=== PATIENT | male | born 1985 | race Caucasian/White ===

== ENCOUNTER 2020-05-09 09:07 | Emergency (ER) | payer OTHER ==
[~2020-05-09] VITALS: Ht 167.6 cm; Wt 77.3 kg
[2020-05-09 09:15] VITALS: Ht 167.6 cm; Wt 77.3 kg
[2020-05-09] MEDS ORDERED: PREDNISONE50 MG PO (09:23)
[2020-05-09] MEDS ORDERED: KEFLEX500 MG PO (09:23)
[2020-05-09] MEDS ORDERED: CLEOCIN HCL300 MG PO (09:23)
[2020-05-09 09:39] VITALS: BP 138/64
== END 2020-05-09 09:40 | disposition home or self-care (01) ==
LOC: D.ER 09:07
DX: R21 Rash and other nonspecific skin eruption (principal); L03.90 Cellulitis, unspecified; L30.9 Dermatitis, unspecified